=== PATIENT | male | born 1955 | race African-American/Black ===

== ENCOUNTER 2023-08-17 07:29 | Inpatient (IN) | payer MEDICARE ==
[~2023-08-17] VITALS: Ht 170.2 cm; Wt 105.2 kg
[~2023-08-17 07:29] MED LIST: AMLO10TA80 MT; CLOP-31 PO; HYDR25TA MT; METF-873 MT; ROSU5TAB MT
[2023-08-17 08:00] VITALS: BP 105/65; PULSE 53; RESP 17; TEMP 98.1
[2023-08-17] MEDS ORDERED: LIDOCAINE HCL 1% 10 MG/ML 10ML VIAL ONE ×2 (09:01→09:21)
[2023-08-17] MEDS ORDERED: HEPARIN 1000 UNITS/ML 10ML ONE (09:02)
[2023-08-17] MEDS ORDERED: IODIXANOL 320MG/ML 100 ML BOTTLE IV ONE ×2 (09:02→10:08)
[2023-08-17] MEDS ORDERED: MIDAZOLAM HCL 2 MG/2 ML VIAL ONE (09:03)
[2023-08-17] MEDS ORDERED: FENTANYL CITRATE/PF 50MCG/ML 2ML VIAL ONE (09:03)
[2023-08-17] MEDS ORDERED: CLOPIDOGREL 75MG TABLET ONE (10:52)
[2023-08-17] MEDS ORDERED: ASPIRIN 325MG TABLET ONE (10:52)
[2023-08-17] MEDS ORDERED: ONDANSETRON HCL 4MG/2ML INJ IV PRN (11:00)
[2023-08-17] MEDS ORDERED: ACETAMINOPHEN 325MG TABLET PO PRN (11:00)
[2023-08-17] MEDS ORDERED: ATROPINE SULFATE 1MG/10ML SYR IV PRN (11:00)
[2023-08-17 11:43] VITALS: BP 105/65; PULSE 53; RESP 17; TEMP 98.1
[2023-08-17 12:00] VITALS: BP 123/81; PULSE 54; RESP 17; TEMP 98.1
[2023-08-17] MEDS: AMLODIPINE 10MG TABLET PO SCH (12:40)
[2023-08-17] MEDS: HYDROCHLOROTHIAZIDE 25MG TABLET PO SCH (12:41)
[2023-08-17 16:00] VITALS: BP 130/95; PULSE 63; RESP 21; TEMP 99
[2023-08-17] MEDS ORDERED: METFORMIN HCL 500MG TABLET PO NR (17:00)
[2023-08-17 20:00] VITALS: BP 155/96; PULSE 68; RESP 18; TEMP 98.6
[2023-08-17] MEDS ORDERED: ZOLPIDEM TARTRATE 5MG TABLET PO PRN (21:00)
[2023-08-17] MEDS ORDERED: ATORVASTATIN CALCIUM 20MG TABLET PO SCH (21:00)
[2023-08-17] MEDS ORDERED: TAMS-11 PO (21:46)
[2023-08-17] MEDS ORDERED: OLME5TAB PO (21:46)
[2023-08-18] VITALS: PULSE 61; RESP 16; TEMP 97.9
[2023-08-18 04:00] VITALS: BP 134/85; PULSE 56; RESP 14; TEMP 98.3
[2023-08-18 08:00] VITALS: BP 145/92; PULSE 55; RESP 11; TEMP 98.3
[2023-08-18 08:25] LABS: BASOPHILS % 0.7 % (0.0-2.0); DIFFERENTIAL COMMENT 0; EOSINOPHILS % 3.5 % (0.0-5.0); HEMATOCRIT. 43.7 % (42.0-52.0); HEMOGLOBIN. 14.4 g/dL (14.0-18.0); LYMPHOCYTES % 27.2 % (20.0-50.0); MEAN CORPUSCULAR HEMOGLOBIN 26.2 pg (28.0-32.0); MEAN CORPUSCULAR HGB CONC 32.9 g/dL (31.0-37.0); MEAN CORPUSCULAR VOLUME 79.6 fL (80.0-94.0); MEAN PLATELET VOLUME 8.9 fl (7.4-10.4); MONOCYTES % 7.2 % (2.0-8.0); NEUTROPHILS % 61.4 % (40.0-76.0); PLATELET 233 x1000/uL (130-400); RED BLOOD CELL COUNT 5.49 mill/uL (4.7-6.1); RED CELL DISTRIBUTION WIDTH 15.5 % (11.6-14.6); WHITE BLOOD COUNT 5.9 x1000/uL (4.5-11.0)
[2023-08-18] MEDS: HYDROCHLOROTHIAZIDE 25MG TABLET PO SCH (08:37)
[2023-08-18] MEDS: AMLODIPINE 10MG TABLET PO SCH (08:37)
[2023-08-18] MEDS: LOSARTAN 25 MG TABLET PO SCH ×2 (08:38→08:44)
[2023-08-18] MEDS ORDERED: CLOP-31 PO (08:59)
[2023-08-18] MEDS ORDERED: ASPI-1497 MT (08:59)
[2023-08-18] MEDS ORDERED: TC1C15 TP (08:59)
[2023-08-18] MEDS ORDERED: ASPIRIN 325MG TABLET PO SCH (09:00)
[2023-08-18] MEDS ORDERED: CLOPIDOGREL 75MG TABLET PO SCH (09:00)
[2023-08-18 09:20] LABS: CHLORIDE 104 mEq/L (98-107); INDEX HEMOLYSI 1 (1-3); INDEX ICTERIC 1 (1-4); INDEX LIPEMIC 1 (1-3); POTASSIUM 3.7 mEq/L (3.5-5.1); SODIUM 135 mEq/L (136-145)
[2023-08-18 09:29] LABS: CALCIUM 8.9 mg/dL (8.5-10.1); CARBON DIOXIDE 31 mEq/L (21-32); CREATININE 1.4 mg/dL (0.6-1.3); GLUCOSE 110 mg/dL (70-105); UREA NITROGEN BLOOD 14 mg/dL (7-21)
[2023-08-18] MEDS ORDERED: METFORMIN HCL 500MG TABLET PO SCH (10:00)
[2023-08-18] MEDS ORDERED: TRIAMCINOLONE ACETONIDE 0.1% CREAM 15GM TOP SCH (10:00)
[2023-08-18 11:01] VITALS: BP 124/79; PULSE 60; TEMP 98.2; O2SAT 99
== END 2023-08-18 11:30 | disposition home or self-care (01) | DRG 247 ==
LOC: CCL 07:29 → 3WST 11:24
PROVIDERS: ADMIT Specialist; ATTEND Specialist
PROC: 027035Z Dilation of Coronary Artery, One Artery with Two Drug-eluting Intraluminal Devices, Percutaneous Approach (ICD-10-PCS; principal; 2023-08-17)
PROC: 4A023N7 Measurement of Cardiac Sampling and Pressure, Left Heart, Percutaneous Approach (ICD-10-PCS; 2023-08-17)
PROC: B211YZZ Fluoroscopy of Multiple Coronary Arteries using Other Contrast (ICD-10-PCS; 2023-08-17)
DX: I25.10 Atherosclerotic heart disease of native coronary artery without angina pectoris (principal); I10 Essential (primary) hypertension; E78.5 Hyperlipidemia, unspecified; E11.9 Type 2 diabetes mellitus without complications; Z79.02 Long term (current) use of antithrombotics/antiplatelets; Z79.82 Long term (current) use of aspirin; Z79.84 Long term (current) use of oral hypoglycemic drugs; Z79.899 Other long term (current) drug therapy; Z87.891 Personal history of nicotine dependence; Z95.5 Presence of coronary angioplasty implant and graft
CPT/HCPCS: 36415; 80048; 82962; 83735; 85025; 85347; 93005; J1644; J2250; J3010; J3490; Q9967